=== PATIENT | female | born 1985 | race Caucasian/White ===

== ENCOUNTER 2018-07-24 17:12 | Inpatient (IN) ==
[2018-07-24 17:59] LABS: BASO# 0.02 X1000 (0.0-0.2); BASO% 0.2 % (0.0-0.8); EOS# 0.06 X1000 (0.0-0.7); EOS% 0.7 % (0.0-10.0); HEMATOCRIT 43.2 % (37.0-47.0); HEMOGLOBIN 14.1 g/dL (12.0-16.0); LYMPH# 3.31 X1000 (1.2-3.4); LYMPH% 36.5 % (20.5-51.1); MCH 30.4 PG (27-31); MCHC 32.6 g/dL (33-37); MCV 93.1 FL (81-99); MONO# 0.44 X1000 (0.11-0.59); MONO% 4.9 % (1.7-9.3); MPV 11.8 FL (7.4-10.4); NEUT# 5.24 X1000 (1.4-6.5); NEUT% 57.7 % (42.2-75.2); PLT 271 X1000 (130-400); RBC 4.64 XMIL (4.2-5.4); RDW 12.2 % (11.5-14.5); WBC 9.07 X1000 (4.8-10.8)
[2018-07-24] MEDS ORDERED: NS 1,000 ML IV ONE ×2 (18:04→19:57)
[2018-07-24 18:14] LABS: URINE SOURCE CLEAN CATCH
[2018-07-24 18:20] LABS: BILIRUBIN URINE NEGATIVE (NEGATIVE); BLOOD URINE NEGATIVE (NEGATIVE); COLOR YELLOW; GLUCOSE URINE NEGATIVE (NEGATIVE); KETONE URINE NEGATIVE (NEGATIVE); LEUKOCYTES URINE NEGATIVE (NEGATIVE); NITRITE URINE NEGATIVE (NEGATIVE); PH URINE 6.5; PROTEIN URINE NEGATIVE (NEGATIVE); TURBIDITY URINE CLEAR (CLEAR); UROBILINOGEN URINE NORMAL (NORMAL)
[2018-07-24 18:21] LABS: UR EPITHELIAL CELLS <10 /HPF (<10); URINE BACTERIA 1+ /HPF; URINE RBC <10 /HPF (<10); URINE WBC <10 /HPF (<10)
[2018-07-24 18:36] LABS: AGAP 14; ALB/GLOB RATIO 1.7; ALBUMIN 4.6 g/dL (3.5-5.0); ALKALINE PHOSPHATASE 60 U/L (32-104); BUN 11 mg/dL (8-22); CALCIUM 9.2 mg/dL (8.8-10.2); CHLORIDE 107 mmol/L (98-107); CK PROFILE 90 U/L (24-173); COSMO 286; CREATININE 0.9 mg/dL (0.5-0.9); ESTIMATED GFR > 60; GLUCOSE 101 mg/dL (70-104); GOT 17 U/L (10-30); GPT 15 U/L (10-36); MAGNESIUM 2.1 mg/dL (1.5-2.7); POTASSIUM 3.3 mmol/L (3.5-5.1); SODIUM 144 mmol/L (136-145); TCO2 23 mmol/L (25-35); TOTAL BILIRUBIN 0.22 mg/dL (0.20-1.00); TOTAL PROTEIN 7.3 g/dL (6.3-8.3)
[2018-07-24 18:38] LABS: UR AMPHETAMINES QUAL NONE DETECTED (NONE DETECT); UR BARBITUATES QUAL NONE DETECTED (NONE DETECT); UR BENZODIAZEPIN QUAL NONE DETECTED (NONE DETECT); UR CANNABINOIDS QUAL NONE DETECTED (NONE DETECT); UR COCAINE QUAL NONE DETECTED (NONE DETECT); UR METHADONE QUAL NONE DETECTED (NONE DETECT); UR OPIATES QUAL NONE DETECTED (NONE DETECT); UR OXYCODONE QUAL NONE DETECTED (NONE DETECT); UR PCP QUAL NONE DETECTED (NONE DETECT)
--- NOTE | 2018-07-24 18:48 | Diag Imaging Result Doc PS360 ---
EXAM: CHEST-2 VIEWS - 07/24/2018 HISTORY: SUBJECTIVE PALPITATION TECHNIQUE: Chest two views COMPARISON: None. FINDINGS: Heart size is normal. There is a small right upper lobe granuloma from old granulomatous disease. Lungs appear mildly hyperexpanded but otherwise clear. There is no consolidation, pleural effusion, or pneumothorax identified. There is mild scoliosis noted. IMPRESSION: Mildly hyperexpanded lungs. No other evidence of acute disease. Electronically signed by Andrew Camarillo 07/24/2018 6:45 PM
[2018-07-24] MEDS ORDERED: ATIVAN IV ONE (19:09)
[2018-07-24] MEDS ORDERED: ATARAX PO ONE (19:10)
[2018-07-24] MEDS ORDERED: KLOR-CON PO ONE (19:57)
--- NOTE | 2018-07-24 20:35 | PROVIDER DOCUMENTATION ---
This chart was entered by Claire Vinson Scribe, acting as scribe for Brooke Pavon MD. HPI-Cardiac General - General Chief Complaint: Palpitations Stated Complaint: HEART RACING Time Seen by Provider: 07/24/18 17:28 Source: patient Allergies/Adverse Reactions: Patient Allergies Allergy/AdvReac Type Severity Reaction Status Date / Time No Known Allergies Allergy Verified 04/25/13 17:54 Home Medications: Home Medication List Medication Instructions Recorded Confirmed Last Taken Type Methylprednisolone [Medrol Dosepak] 4 mg PO DIRECTED #1 package 04/25/13 Unknown Rx Multivit,Fe,Ca,FA & Min [Thera M 1 each PO DAILY 04/25/13 04/25/13 04/25/13 08:00 History Plus] Docosahexanoic Acid [ Dha] 200 mg PO DAILY 03/16/15 03/16/15 Unknown History Hydrocodone/APAP 5 mg/325 mg 1 each PO Q6H PRN PRN #14 tablet 03/17/15 Unknown Rx [[place]-5] Ibuprofen [Motrin] 800 mg PO Q8H PRN PRN #60 tablet 03/17/15 Unknown Rx - History of Present Illness-Cardiac Nature of Presenting Problem: 33 yof presents w/co heart palp starting 1 hr ago when tossing wood into dumpster. pt states this has happened 3 other times and last episode was june 28. pt has never been tx for condition. pt started taking buspirone 1 wk ago. pt denies sob, dizziness and headache. pt also denies rec drug use. Review of Systems - Adult - REVIEW OF SYSTEMS - ADULT Constitutional: reports: no symptoms reported Eyes: reports: no symptoms reported Ears, Nose, Mouth & Throat: reports: no symptoms reported Cardiovascular: reports: see HPI, palpitations. denies: chest pain, poor circulation, syncope Respiratory: reports: no symptoms reported. denies: cough, shortness of breath, wheezing Gastrointestinal: reports: no symptoms reported Genitourinary: reports: no symptoms reported Musculoskeletal: reports: no symptoms reported Integumentary: reports: no symptoms reported Neurological: reports: no symptoms reported. denies: dizziness/vertigo, headache/migraines Psychiatric: reports: no symptoms reported Endocrine: reports: no symptoms reported Hematologic/Lymphatic: reports: no symptoms reported Allergic/Immunologic: reports: no symptoms reported All Other Systems: Reviewed and Negative Past History - Adult - PAST MEDICAL HISTORY-ADULT Review of Records: reports: Old Records Reviewed, Nursing Assessment Review, Medications Reviewed, Social history reviewed & non-contributory. Major Childhood Illnesses: reports: denies history Cardiovascular: reports: denies history Respiratory: reports: denies history Gastrointestinal: reports: denies history Obstetrical/Gynecological: reports: denies history Genitourinary: reports: denies history Musculoskeletal: reports: denies history Neurological: reports: denies history Endocrine/Immune: reports: denies history Other Conditions: reports: denies history - PRIOR SURGERIES/PROCEDURES Surgical/Procedure History: reports: other (eye sx) - IMMUNIZATION STATUS Childhood Immunizations: See Nurse Assessment Flu Vaccine: See Nurse Assessment - FAMILY HISTORY Family History: reviewed, not pertinent - SOCIAL HISTORY Smoking: cigarettes, less than 1 pack/day Provider spent 3-5 mins advising pt. on dangers of tobacco.: Discussed manners to quit use, and f/u contacts for add'l counseling. Substance Use: alcohol Alcohol Use Frequency: occasionally Physical Exam-General - PHYSICAL EXAM-ADULT Initial Vital Signs Reviewed: Yes - CONSTITUTIONAL General Appearance: appears well, alert, no apparent distress - EYES Eyes: PERRL/EOMI - HEAD, EARS, NOSE, MOUTH & THROAT HENMT: normocephalic/atraumatic, moist mucous membranes, normal ENT inspection - NECK Neck: non-tender, full range of motion, supple, normal inspection - RESPIRATORY Respiratory: chest non-tender, lungs clear, normal breath sounds - CARDIOVASCULAR Cardiovascular: normal peripheral pulses, no edema, no gallop, no JVD, no murmur , tachycardia. negative: regular rate, rhythm, JVD, bradycardia, gallop/S3, gallop/S4, extra beats - GASTROINTESTINAL (ABDOMEN) Abdominal Exam: normal bowel sounds, non tender, soft - LYMPHATIC Lymphatic: no adenopathy - MUSCULOSKELETAL Back Exam: normal inspection, no CVA tenderness, no vertebral tenderness Extremity: normal range of motion, non-tender, normal inspection Peripheral Pulses: radial (R): 2+, radial (L): 2+ - SKIN Integumentary: normal color, normal turgor - NEUROLOGIC Neurologic: retirement specialist II-XII nml as tested, grossly normal, no motor/sensory deficits - PSYCHIATRIC Psych/Mental Status: normal mood/affect, normal thought content, normal thought process, oriented x 3 Progress - PLAN OF CARE/RESULTS Progress/Plan/Lab Results: Vital Signs - 8 hr 07/24/18 17:20 Temperature 98.8 F Pulse Rate 168 H Respiratory Rate 20 Blood Pressure 106/71 O2 Sat by Pulse Oximetry 100 Bedside Urine ED: Urine Bedside Start: 07/24/18 17:49 Freq: Status: Inactive Protocol: Activity Type Activity Date Activity User E-Sign Co-Sign Detail Recorded Client Recorded Date Recorded By Document 07/24/18 17:49 [id number] 07/24/18 17:52 [id number] Edit Status 07/24/18 19:12 BKG DAEMON Active=>Inactive [id number] 07/24/18 19:12 BKG DAEMON 07/24/18 17:49 Point of Care [Bedside Point of Care] -Lot # hcg [id number] - Results Negative -Control Line Visible? Yes -Additional Comment exp 10/25/2019 ED: Urine Bedside Start: 07/24/18 19:12 Freq: ORDERED Status: Cancelled Protocol: Activity Type Activity Date Activity User E-Sign Co-Sign Detail Recorded Client Recorded Date Recorded By Edit Status 07/24/18 19:14 [id number] Active=>Cancelled [id number] 07/24/18 19:14 [id number] Laboratory Results - last 24 hr 07/24/18 07/24/18 07/24/18 17:40 17:40 17:40 WBC 9.07 RBC 4.64 Hgb 14.1 Hct 43.2 MCV 93.1 MCH 30.4 MCHC 32.6 L RDW Std Deviation 12.2 Plt Count 271 MPV 11.8 H Immature Gran % (Auto) 0.0 Neut % (Auto) 57.7 Lymph % (Auto) 36.5 Gray % (Auto) 4.9 Eos % (Auto) 0.7 Baso % (Auto) 0.2 Immature Gran # (Auto) 0.00 Neut # (Auto) 5.24 Lymph # (Auto) 3.31 Gray # (Auto) 0.44 Eos # (Auto) 0.06 Baso # (Auto) 0.02 D-Dimer, Quantitative Sodium 144 Potassium 3.3 L Chloride 107 Carbon Dioxide 23 L Anion Gap 14 BUN 11 Creatinine 0.9 Estimated GFR/1.73 m2 > 60 BUN/Creatinine Ratio 12 Glucose 101 Calculated Osmolality 286 Calcium 9.2 Magnesium 2.1 Total Bilirubin 0.22 AST 17 ALT 15 Alkaline Phosphatase 60 Creatine Kinase 90 Troponin T [id number]-Kqxwmehjgkd Pept 104 Total Protein 7.3 Albumin 4.6 Globulin 2.7 Albumin/Globulin Ratio 1.7 TSH Urine Source Urine Color Urine Turbidity Urine pH Ur Specific [place] Urine Protein Ur Glucose (Stick) Ur Ketones (Stick) Urine Blood Urine Nitrite Urine Bilirubin Urobilinogen Dipstick Urine Leukocytes Urine WBC (Auto) Urine RBC (Auto) U Epithel Cells (Auto) Urine Bacteria (Auto) Urine Test Urine Opiates Screen Ur Oxycodone Screen Ur Methadone, Qual Ur Barbiturates Screen Ur Phencyclidine Scrn Ur Amphetamines Screen U Benzodiazepines Scrn Urine Cocaine Screen U Cannabinoids Screen 07/24/18 07/24/18 07/24/18 17:40 17:40 17:40 WBC RBC Hgb Hct MCV MCH MCHC RDW Std Deviation Plt Count MPV Immature Gran % (Auto) Neut % (Auto) Lymph % (Auto) Gray % (Auto) Eos % (Auto) Baso % (Auto) Immature Gran # (Auto) Neut # (Auto) Lymph # (Auto) Gray # (Auto) Eos # (Auto) Baso # (Auto) D-Dimer, Quantitative Sodium Potassium Chloride Carbon Dioxide Anion Gap BUN Creatinine Estimated GFR/1.73 m2 BUN/Creatinine Ratio Glucose Calculated Osmolality Calcium Magnesium Total Bilirubin AST ALT Alkaline Phosphatase Creatine Kinase Troponin T < 0.010 Xjc-Q-Tuiaouhadlp Pept Total Protein Albumin Globulin Albumin/Globulin Ratio TSH 1.08 Urine Source CLEAN CATCH Urine Color YELLOW Urine Turbidity CLEAR Urine pH 6.5 Ur Specific [place] 1.000 Urine Protein NEGATIVE Ur Glucose (Stick) NEGATIVE Ur Ketones (Stick) NEGATIVE Urine Blood NEGATIVE Urine Nitrite NEGATIVE Urine Bilirubin NEGATIVE Urobilinogen Dipstick NORMAL Urine Leukocytes NEGATIVE Urine WBC (Auto) <10 Urine RBC (Auto) <10 U Epithel Cells (Auto) <10 Urine Bacteria (Auto) 1+ Urine Test Urine Opiates Screen Ur Oxycodone Screen Ur Methadone, Qual Ur Barbiturates Screen Ur Phencyclidine Scrn Ur Amphetamines Screen U Benzodiazepines Scrn Urine Cocaine Screen U Cannabinoids Screen 07/24/18 07/24/18 07/24/18 17:40 17:40 17:40 WBC RBC Hgb Hct MCV MCH MCHC RDW Std Deviation Plt Count MPV Immature Gran % (Auto) Neut % (Auto) Lymph % (Auto) Gray % (Auto) Eos % (Auto) Baso % (Auto) Immature Gran # (Auto) Neut # (Auto) Lymph # (Auto) Gray # (Auto) Eos # (Auto) Baso # (Auto) D-Dimer, Quantitative < 0.27 Sodium Potassium Chloride Carbon Dioxide Anion Gap BUN Creatinine Estimated GFR/1.73 m2 BUN/Creatinine Ratio Glucose Calculated Osmolality Calcium Magnesium Total Bilirubin AST ALT Alkaline Phosphatase Creatine Kinase Troponin T [id number]-M-Jsysclazwzy Pept Total Protein Albumin Globulin Albumin/Globulin Ratio TSH Urine Source Urine Color Urine Turbidity Urine pH Ur Specific [place] Urine Protein Ur Glucose (Stick) Ur Ketones (Stick) Urine Blood Urine Nitrite Urine Bilirubin Urobilinogen Dipstick Urine Leukocytes Urine WBC (Auto) Urine RBC (Auto) U Epithel Cells (Auto) Urine Bacteria (Auto) Urine Test NEGATIVE Urine Opiates Screen NONE DETECTED Ur Oxycodone Screen NONE DETECTED Ur Methadone, Qual NONE DETECTED Ur Barbiturates Screen NONE DETECTED Ur Phencyclidine Scrn NONE DETECTED Ur Amphetamines Screen NONE DETECTED U Benzodiazepines Scrn NONE DETECTED Urine Cocaine Screen NONE DETECTED U Cannabinoids Screen NONE DETECTED Orders Category Date Time Status cxr [CHEST-2 VIEWS] [RAD] Stat Exams 07/24/18 17:29 Completed BNP [PRO B-NATRIURETIC PEPTIDE] Stat Lab 07/24/18 17:40 Completed CBC WITH ELECTRONIC DIFF [HEME] Stat Lab 07/24/18 17:40 Completed CK PROFILE [SP CHEM] Stat Lab 07/24/18 17:40 Completed COMPREHENSIVE METABOLIC PANEL [CHEM] Stat Lab 07/24/18 17:40 Completed D-DIMER [COAG] Stat Lab 07/24/18 17:40 Completed MAGNESIUM [CHEM] Stat Lab 07/24/18 17:40 Completed TEST-URINE [PREG] Stat Lab 07/24/18 17:40 Completed TROPONIN T Stat Lab 07/24/18 17:40 Completed TSH Stat Lab 07/24/18 17:40 Completed URINALYSIS W/POSS RFLX CULT [URINALYSIS] Stat Lab 07/24/18 17:40 Completed URINE DRUG SCREEN Stat Lab 07/24/18 17:40 Completed 0.9% Sodium Chloride Inj [Ns] 1,000 ml Med 07/24/18 18:04 Discontinued IV 999 mls/hr 0.9% Sodium Chloride Inj [Ns] 1,000 ml Med 07/24/18 19:57 Active IV 999 mls/hr Hydroxyzine [Atarax] Med 07/24/18 19:10 Discontinued 10 mg PO NOW ONE Lorazepam [Ativan] Med 07/24/18 19:09 Discontinued 1 mg IV NOW ONE Potassium Chloride E.r. [Klor-Con] Med 07/24/18 19:57 Discontinued 40 meq PO NOW ONE EKG [EKG] Stat Ther 07/24/18 17:23 Ordered EKG [EKG] Stat Ther 07/24/18 17:47 Ordered EKG [EKG] Stat Ther 07/24/18 20:10 Ordered Result Diagrams: 07/24/18 17:40 07/24/18 17:40 - REASSESSMENT Reassessment #1 Time Reassessed: 20:09 Status: improving (PATIENT SINUS TACH IN 180S. DID VALSALVA (BEAR DOWN) AND HR DOWN TO 80S LOWEST AND NOW IN 110S. WILL REEVALAUTE AND REPEAT EKG.) Reassessment #2 Time Reassessed: 20:29 Status: other Reassessment #3 Time Reassessed: 20:34 Status: other (SPOKE TO DR. VANN; WILL DO OBSERVATION OVERNIGHT.) - EKG 1 Time of EKG reading by physician:: 17:17 EKG Read and Signed by:: Brooke Pavon EKG Interpretation (*Must complete 3 of following elements*): Abnormal Rate: 165 Rhythm: ST Dawson: right MO Interval: shortened ST Wave: non-specific ST changes (st & t abnormality consider inferior ischemia) 2 Time of EKG reading by physician:: 17:54 EKG Read and Signed by:: Brooke Pavon EKG Interpretation (*Must complete 3 of following elements*): Abnormal Rate: 163 Rhythm: ST Dawson: right QRS: other (low voltage qrs) MO Interval: shortened ST Wave: non-specific ST changes (st & t wave abnormality, consider inferolateral ischemia) Departure - Departure Date of Disposition Decision: 07/24/18 Time of Disposition Decision: 20:35 DIAGNOSIS: Sinus tachycardia, Hypokalemia Disposition: ADMITTED INPATIENT 09 Certified Medical Emergency: Emergent Condition: Fair Referrals and Follow-Ups: None,PCP [Primary Care Provider] - - Critical Care Note This patient required my direct & personal management of CC.: No Attestation - Physician/ NAT Attestation Patient care was provided by Advanced Practice Provider:: No The physician spent face to face time with patient:: Yes Advanced Practice Provider documentation review:: Supervising physician onsite and consulted in the evaluation and care of this patient. The physician did have a face to face encounter with the patient. This chart was documented by the indicated scribe, (Claire Vinson, Tabatha) and accurately reflects the services I performed and decisions made by me, Brooke Pavon MD, as attested by the provider's signature.
[2018-07-24] MEDS ORDERED: TYLENOL PO PRN (23:18)
[2018-07-25] MEDS: NS 1,000 ML IV SCH ×3 (00:06→13:32)
--- NOTE | 2018-07-25 08:34 | PROGRESS NOTE ---
DATE: 07/25/2018 SUBJECTIVE: Ms. Pelletier was admitted with palpitations. She feels like this could be a panic attack but was very afraid that her heart was having significant arrhythmia. Her lab, she had a little bit of low potassium. She has tried serotonin uptake inhibitors in the past but does not tolerate them very well. I think she has tried Zoloft when she was a high school. Her background is her mother has committed suicide. Her father last year. She is on BuSpar just 5 mg a day. I think we gave her a little bit of potassium. She took a dose of Atarax yesterday. She was crying and just concerned that something severe was happening. We will have Dr. Alatorre, cardiology, evaluate as well. She was given some potassium yesterday. PHYSICAL EXAMINATION: Vital Signs: Today, temperature 97.9 degrees, pulse 86, respirations 18, blood pressure 104/72. HEENT: Pupils are equal and round. Lungs: Clear in all lung chang. Cardiovascular Examination: Regular rhythm and rate without murmur or S3. Abdomen: Soft. Skin: Warm and dry. Is and Os: Urine output was 600 mL. ASSESSMENT AND PLAN: I suspect we will be able to let her go home this afternoon. I want her to get a little bit of rest and get to meet hard metals engraver hand and talk to him. I do think we need to check her thyroid, B12, and folate, and so I will do that. cc: Girma Osorio MD
[2018-07-25] MEDS ORDERED: BUSPAR PO SCH (09:00)
[2018-07-25 11:26] LABS: TSH 1.24 uIUmL (0.27-4.20)
[2018-07-25] MEDS ORDERED: ISOPTIN PO SCH ×2 (15:13→17:00)
[2018-07-25 15:28] VITALS: BP 109/65
--- NOTE | 2018-07-25 15:36 | CONSULTATION ---
DATE OF CONSULTATION: 07/25/2018 IMPRESSION: 1. Paroxysmal supraventricular tachycardia. 2. Anxiety disorder. RECOMMENDATIONS: 1. Echocardiography. 2. Initiate low-dose verapamil. HISTORY: This 33-year-old, white female with a past history of anxiety was admitted through the emergency room after she presented with tachy palpitations. She relates that she developed tachy palpitations while she was moving some zulema material. She and her are renovating their home. There were no other associated symptoms. Tachy palpitations persisted and seemed to be a bit more than what she had experienced in the past with her anxiety. She came to the emergency room with ongoing tachy palpitations and ECG demonstrated narrow complex tachycardia at around 165 beats per minute. P-waves could not be discerned. She describes having carotid massage and then bearing down to perform Valsalva. She relates that the emergency room physician seemed to be impressed that her tachycardia resolved. ECG strips of this were not recorded. She has since remained in sinus rhythm with well defined P-waves. She recalls a similar episode perhaps a month ago. However, in the past and over the year, she has only had brief momentary palpitations which she relates to her anxiety. PAST MEDICAL HISTORY: Negative for hypertension, negative for diabetes, negative for hyperlipidemia. ALLERGIES: She has no known drug allergies. MEDICATIONS PRIOR TO ADMISSION: As listed. SOCIAL HISTORY: She is . She has a 3-year-old child. FAMILY HISTORY: Negative for premature coronary artery disease. REVIEW OF SYSTEMS: Pulmonary: Negative. Gastrointestinal: Negative. Constitutional: Negative. Remainder of the review of systems was negative/noncontributory with 14 total systems reviewed. PHYSICAL EXAMINATION: General: This is an adult female in no distress. Vital Signs: Blood pressure 103/69, heart rate 60 and regular, oxygen saturation 100% on room air. HEENT Examination: Extraocular movements appear intact. Mucous membranes are moist. Neck: Supple without jugular venous distention. There were no carotid bruits. Chest: Clear to auscultation. Cardiac Examination: Reveals a regular rate and rhythm without appreciable murmur or gallop. Abdomen: Soft. Bowel sounds were normal. Extremities: Without edema. PERTINENT DATA: Twelve lead EKG obtained in the emergency room during tachycardia demonstrates narrow complex tachycardia at 165 beats per minute. There were no discernible P-waves. Nonspecific ST and T-wave abnormality demonstrated. Twelve lead EKG obtained this afternoon demonstrates normal sinus rhythm and low voltage QRS. Nonspecific T-wave abnormalities demonstrated. LABORATORY DATA: Includes white blood cell count of 9.07, hematocrit 43.2, hemoglobin 14.1, platelet count 271,000. D-dimer less than 0.27. Sodium 144, potassium 3.3, chloride 107, carbon dioxide 23, BUN 11, creatinine 0.9. Magnesium 2.1. Troponin T less than 0.01, CPK 90. TSH 1.08. cc: Modesto Alatorre MD
--- NOTE | 2018-07-25 17:40 | DISCHARGE SUMMARY ---
ADMISSION DATE: 07/24/2018 DISCHARGE DATE: 07/25/2018 HISTORY AND HOSPITAL COURSE: She has a history of anxiety and was complaining of some tachy palpitations that developed when she was moving some zulema material. Apparently her is renovating the home. She has had these palpitations before. She denied any chest pain. EKG demonstrated narrow complex tachycardia. Apparently, heart rate was in the 160-165 range. P- waves could not be documented. Described having carotid massage and then bearing down, performing Valsalva and her rhythm went down. She appeared to be in sinus rhythm with well-defined P-waves on subsequent EKGs. I do not think we have any strips or actual EKG when she was having the accelerated rate. She is negative for hypertension. Negative for diabetes or hyperlipidemia. No known drug allergies. Not using any illicit drugs. Negative for alcohol. She lost her father this last year. Distant history of her mother who committed suicide. So she has battled depression and anxiety for a while. We did an echocardiogram and did not see any gross abnormality or valvular dysfunction. She very much wanted to go home. She feels like these symptoms are more related to her anxiety. She was taking just one 5 mg of BuSpar, but I would like her to try a serotonin uptake inhibitor which she has, I think, done before high school. He put her on a very low dose of verapamil, Isoptin 40 mg p.o. t.i.d. and I thought I would let her take those. I want her to follow up with her primary care and follow up with Cardiology. She can continue the BuSpar 5 mg a day and I will try Celexa just at 20 mg a day and see if that will help. LABORATORY: Review of her lab. No thyroid dysfunction. Electrolytes look good. No anemia. In listening to her symptomatology, it very well could be consistent with panic attacks. We do not have enough information to rule out a supraventricular tachycardia or reentry tachycardia, but this also very well could be sinus tachycardia, so I want her to follow up. But, she is insistent she would like to go home. I think she ought to try the Celexa for a while and see if it will help. cc: Girma Osorio MD
--- NOTE | 2018-07-26 02:29 | ECHO REPORT ---
ORDER DATE: 07/25/2018 MEASUREMENTS: Left ventricular end-diastolic diameter 4.9, end systolic diameter 2.8, septal thickness 0.6, posterior wall thickness 0.6, left atrium 2.8, aortic root 2.7. SUMMARY: 1. Adequate quality study. 2. The aortic valve is trileaflet and opens normally on 2-dimensional images. Peak gradient across the aortic valve is less than 10 mmHg. Mitral, tricuspid and pulmonic valves are without evidence of structural abnormality with trace mitral regurgitation, very mild tricuspid regurgitation, and mild pulmonic insufficiency. The estimated systolic PA pressure by Doppler is 30 to 35 mmHg. The aortic root is normal size. 3. Normal left ventricular dimensions demonstrated. Estimated left ejection fraction appears to be at least 65%. No regional wall motion abnormalities are evident. Left atrium, right atrium and right ventricle are normal in size with normal right ventricular systolic function. 4. No pericardial effusion. 5. Appearance of inferior vena cava suggests normal central venous pressure. cc: Modesto Alatorre MD
--- NOTE | 2018-07-26 04:00 | HISTORY AND PHYSICAL ---
PRIMARY CARE PHYSICIAN: None. CHIEF COMPLAINT: Palpitations. HISTORY OF PRESENTING ILLNESS: A 33-year-old female without any significant past medical history presents to emergency department with 2 days history of having palpitations. She states that she was not feeling well and she also felt dizzy at times. She was evaluated in the emergency department. An EKG shows sinus tachycardia and apparently a Valsalva maneuver was applied and her rate lowered down. Due to her presenting symptoms, it was thought that we will place her for observation for further evaluation management. At the time of my examination patient denied any headache, fever, chills, chest pain, hemoptysis, melena, weight changes but complained of palpitations and shortness of breath. PAST MEDICAL HISTORY: None. PAST SURGICAL HISTORY: None. ALLERGIES: No known drug allergies. CURRENT MEDICATIONS: None. SOCIAL HISTORY: Ten pack years history of smoking. Denies any history of alcohol or illicit drug use. FAMILY HISTORY: Positive for coronary disease father. REVIEW OF SYSTEMS: Fourteen point review of systems is as in HPI. Other systems negative. PHYSICAL EXAMINATION: GENERAL: Cooperative, friendly female. She is resting more comfortably now. VITAL SIGNS: Temperature 98.8 degrees, pulse 168, respirations 20, blood pressure 106/71. HEENT: Atraumatic, normocephalic. Extraocular movements intact. PERRLA. NECK: No masses. CHEST: Clear to auscultation. CARDIOVASCULAR: Tachycardic. ABDOMEN: Soft. Positive bowel sounds. EXTREMITIES: No edema. NEUROLOGIC: She is awake, alert, oriented x3. : No bladder distention. SKIN: Warm. LABORATORIES AND STUDIES: WBC 9.07, hemoglobin 14.1, hematocrit 43.2, platelets 271,000, sodium 144, potassium 3.3, chloride 107, CO2 23, BUN is 11, creatinine 2.9, glucose is 101. Chest x- ray is negative. ASSESSMENT: 33-year-old female without any significant past medical history presents to emergency department with 2 days history of having palpitations. She was evaluated in the emergency department. She was found to be in sinus tachycardia. Apparently Valsalva maneuver was applied her rate had come down after that however due to presenting symptoms, will place her for observation further evaluation. 1. Palpitations. 2. Tobacco abuse. PLAN: 1. Patient will be admitted to medical floor with telemetry. 2. We will consult Cardiology. 3. We will add low-dose beta ruthann for heart rate increases. 4. Counseled patient on smoking cessation. 5. Put patient on DVT prophylaxis SCD. 6. We will continue to follow and reassess. Make further recommendation based on patient's clinical course. cc: Víctor Lauren MD MTDD
--- NOTE | 2018-07-26 08:09 | EKG Report ---
Test Performed on : 07/25/2018 1:56:38 PM Test Reason : tachycardia Blood Pressure : / mmHG Vent. Rate : 060 BPM Atrial Rate : 060 BPM P-R Int : 130 ms QRS Dur : 074 ms QT Int : 428 ms P-R-T Axes : 063 087 -51 degrees QTc Int : 428 ms Normal sinus rhythm. Low voltage QRS Nonspecific T wave abnormality Abnormal ECG When compared with ECG of 24-JUL-2018 17:54, (Unconfirmed) Vent. rate has decreased BY 103 BPM T wave inversion less evident in Inferior leads T wave inversion no longer evident in Lateral leads Unconfirmed Result
--- NOTE | 2018-07-26 08:29 | EKG Report ---
Test Performed on : 07/24/2018 5:17:28 PM Test Reason : PALPITATIONS Blood Pressure : / mmHG Vent. Rate : 165 BPM Atrial Rate : 165 BPM P-R Int : 144 ms QRS Dur : 066 ms QT Int : 276 ms P-R-T Axes : 062 108 264 degrees QTc Int : 457 ms Sinus tachycardia. Rightward axis ST & T wave abnormality, consider inferior ischemia Abnormal ECG When compared with ECG of 08-FEB-2018 10:20, Vent. rate has increased BY [address] now depressed in Lateral leads T wave inversion now evident in Inferior leads T wave inversion now evident in Lateral leads Unconfirmed Result
--- NOTE | 2018-07-26 10:08 | EKG Report ---
Test Performed on : 07/24/2018 5:54:12 PM Test Reason : REPEAT Blood Pressure : / mmHG Vent. Rate : 163 BPM Atrial Rate : 163 BPM P-R Int : 184 ms QRS Dur : 066 ms QT Int : 184 ms P-R-T Axes : 046 095 255 degrees QTc Int : 302 ms Sinus tachycardia. Rightward axis Low voltage QRS ST & T wave abnormality, consider inferolateral ischemia Abnormal ECG When compared with ECG of 24-JUL-2018 17:17, (Unconfirmed) No significant change was found Unconfirmed Result
--- NOTE | 2018-07-26 10:21 | EKG Report ---
Test Performed on : 07/24/2018 8:44:39 PM Test Reason : ED. NO EKG ORDER FOR MUSE Blood Pressure : / mmHG Vent. Rate : 094 BPM Atrial Rate : 094 BPM P-R Int : 144 ms QRS Dur : 072 ms QT Int : 376 ms P-R-T Axes : 074 070 030 degrees QTc Int : 470 ms Normal sinus rhythm. Low voltage QRS Cannot rule out Anterior infarct , age undetermined Abnormal ECG No previous ECGs available Unconfirmed Result
== END 2018-07-25 17:50 | disposition home or self-care (01) | DRG 880 ==
LOC: ED 17:12 → 3S 22:44 → SUATTDRO 22:44
PROVIDERS: ATTEND Emergency Medicine
CPT/HCPCS: 71020; 71046; 80053; 80101; 80301; 80307; 80324; 80345; 80346; 80353; 80358; 80361; 80365; 81001; 81025; 82550; 82607; 82746; 83735; 83880; 83992; 84439; 84443; 84484; 85025; 85379; 93005; 93306; 96361; 96374; 99285; A9270; G0431; G0434; G0479; G0480; J2060; J7030